=== PATIENT | female | born 1975 | race American Indian/Alaskan Native ===

== ENCOUNTER 2017-07-17 16:31 | Emergency (ER) | payer OTHER ==
[2017-07-17] MEDS ORDERED: TYLENOL PO ONE (17:41)
[2017-07-17] MEDS ORDERED: NACL 0.9% 1000 ML 1,000 ML IV ONE (18:13)
[2017-07-17] MEDS ORDERED: ZOFRAN IV ONE (18:13)
--- NOTE | 2017-07-17 18:17 | Emergency Department Report ---
HPI - General Chief Complaint: Nausea/Vomiting/Diarrhea Time Seen by Provider: 07/17/17 18:07 - HPI HPI: Room 1 The patient is a 42-year-old female presented with a chief complaint of nausea vomiting. Patient states her symptoms began yesterday with intractable nausea and vomiting. The patient's station and began to feel weak with body aches and subjective fever. Patient is to chills and occasional dysuria for 1 day. Patient denies hematuria. Patient states she has had some epigastric cramping earlier that has since resolved. The patient states her son had similar symptoms 3 days ago Location: The gastrointestinal system Duration: [See above] Quality: Nausea vomiting Severity: Moderate Modifying factors: [see above] Context: [see above] Mode of transportation: [not driving] ED Past Medical Hx - Past Medical History Hx Hypertension: Yes Hx GERD: Yes (currently not on meds) Hx Asthma: Yes Additional medical history: mvp, HLP - Surgical History Additional Surgical History: cervical ablation. cervical cerclage - Family History Family history: no significant - Social History Smoking Status: Never Smoker Substance Use Type: None - Medications Home Medications: Home Medications Medication Instructions Recorded Confirmed Last Taken Type Pantoprazole [Protonix] 20 mg PO BID #60 tablet. 06/01/14 07/28/14 Unknown Rx Azithromycin [Zithromax Z-HERRERA] 250 mg PO DAILY #1 pkg 07/28/14 Unknown Rx Lisinopril [Zestril] 20 mg PO QDAY 07/28/14 07/28/14 07/27/14 History Promethazine /Codeine 5 ml PO Q6H PRN #150 udc 07/28/14 Unknown Rx [Phenergan/Codeine 6.25-10 mg/5 ml] Simvastatin [Zocor] 20 mg PO QHS 07/28/14 07/28/14 07/27/14 History predniSONE [Deltasone] 50 mg PO QDAY #5 tab 07/28/14 Unknown Rx Fluticasone [Flonase] 1 spray NS QDAY #1 bottle 09/11/14 Unknown Rx Ibuprofen [Motrin] 800 mg PO TID PRN #21 tablet 09/11/14 Unknown Rx Promethazine [Phenergan] 25 mg PO Q6H PRN #10 tablet 09/11/14 Unknown Rx Cyclobenzaprine [Flexeril 10 MG 10 mg PO TID PRN #20 tablet 03/14/15 Unknown Rx TAB] oxyCODONE /ACETAMINOPHEN [Percocet 2 tab PO Q6HR PRN #30 tablet 03/14/15 Unknown Rx 5/325 mg] Lisinopril/Hydrochlorothiazide 1 tab PO QDAY #30 tab 08/09/15 Unknown Rx [Zestoretic 20-25 mg] metroNIDAZOLE [Flagyl] 500 mg PO Q12HR #14 tab 08/09/15 Unknown Rx traMADol [Ultram 50 MG tab] 50 mg PO Q6HR PRN #12 tablet 08/09/15 Unknown Rx Sulfamethoxazole/Trimethoprim 2 tab PO BID #21 tab 07/02/16 Unknown Rx [Bactrim 400-80 mg] Ondansetron [Zofran ODT TAB] 8 mg PO Q8HR #20 tab.rapdis 07/17/17 Unknown Rx Promethazine [Phenergan] 25 mg PA Q6HR PRN #5 supp.rect 07/17/17 Unknown Rx ED Review of Systems ROS: Stated complaint: FLU LIKE SYMPTOMS Other details as noted in HPI Constitutional: chills, fever (subjective) Gastrointestinal: abdominal pain, nausea, vomiting. denies: diarrhea Genitourinary: dysuria. denies: hematuria Musculoskeletal: myalgia Physical Exam - Physical Exam Vital Signs: Vital Signs 07/17/17 07/17/17 07/17/17 16:41 17:32 17:38 Temperature 100.3 F H 100.5 F H Pulse Rate 112 H 108 H Respiratory 20 18 Rate Blood Pressure 167/101 Blood Pressure 155/88 [Right] O2 Sat by Pulse 100 97 97 Oximetry Physical Exam: GENERAL: The patient is well-developed well-nourished female lying on stretcher not appearing to be in acute distress. [] HEENT: Normocephalic. Atraumatic. Extraocular motions are intact. Patient has moist mucous membranes. NECK: Supple. Trachea midline CHEST/LUNGS: Clear to auscultation. There is no respiratory distress noted. HEART/CARDIOVASCULAR: Regular. There is no tachycardia. There is no gallop rub or murmur. ABDOMEN: Abdomen is soft, nontender. Patient has normal bowel sounds. There is no abdominal distention. SKIN: There is no rash. There is no edema. There is no diaphoresis. NEURO: The patient is awake, alert, and oriented. The patient is cooperative. The patient has normal speech MUSCULOSKELETAL: There is no evidence of acute injury. ED Course Vital Signs 07/17/17 07/17/17 07/17/17 16:41 17:32 17:38 Temperature 100.3 F H 100.5 F H Pulse Rate 112 H 108 H Respiratory 20 18 Rate Blood Pressure 167/101 Blood Pressure 155/88 [Right] O2 Sat by Pulse 100 97 97 Oximetry - Reevaluation(s) Reevaluation #1: 07/17/17 20:24 pt tolerating po ED Medical Decision Making - Lab Data Result diagrams: 07/17/17 18:18 07/17/17 18:18 - Differential Diagnosis gastritis, gastroenteritis, UTI, pyelonephritis Critical care attestation.: If time is entered above; I have spent that time in minutes in the direct care of this critically ill patient, excluding procedure time. ED Disposition Clinical Impression: Gastritis, Nausea & vomiting Disposition: DC-01 TO HOME OR SELFCARE Is pt being admited?: No Does the pt Need Aspirin: No Condition: Stable Instructions: Gastroenteritis (ED), Acute Nausea and Vomiting (ED) Additional Instructions: Return to the emergency department immediately should you develop worsening symptoms, fever, inability to tolerate food or liquid or any other concerns. Prescriptions: Ondansetron [Zofran ODT TAB] 8 mg PO Q8HR #20 tab.rapdis Promethazine [Phenergan] 25 mg PA Q6HR PRN #5 supp.rect PRN Reason: Vomiting Referrals: KENJI MYRICK MD [Primary Care Provider] - 3-5 Days Time of Disposition: 20:25
[2017-07-17 18:37] LABS: Basophils % (Auto) 0.3 % (0.0-1.8); Eosinophils % (Auto) 0.3 % (0.0-4.3); Hematocrit 39.2 % (30.3-42.9); Hemoglobin 13.3 gm/dl (10.1-14.3); Mean Corpuscular HGB Conc 34 % (30-34); Mean Corpuscular Hemoglobin 28 pg (28-32); Mean Corpuscular Volume 83 fl (79-97); Platelet Count 238 K/mm3 (140-440); Red Blood Count 4.74 M/mm3 (3.65-5.03); Red Cell Distribution Width 14.1 % (13.2-15.2); White Blood Count 6.9 K/mm3 (4.5-11.0)
[2017-07-17 18:53] VITALS: BP 146/89
[2017-07-17 18:53] LABS: Alanine Aminotransferase 13 units/L (7-56); Albumin 4.1 g/dL (3.9-5); Albumin/Globulin Ratio 1.7 %; Alkaline Phosphatase 68 units/L (35-129); Anion Gap 16 mmol/L; BUN/Creatinine Ratio 15; Blood Urea Nitrogen 9 mg/dL (7-17); Calcium 8.4 mg/dL (8.4-10.2); Carbon Dioxide 25 mmol/L (22-30); Chloride 97.4 mmol/L (98-107); Glucose 93 mg/dL (65-100); Lipase 20 units/L (13-60); Potassium 3.7 mmol/L (3.6-5.0); Sodium 135 mmol/L (137-145); Total Protein 6.5 g/dL (6.3-8.2)
[2017-07-17 18:53] LABS: Bacteria,Urine 1+ /HPF (Negative); Bilirubin,Urine NEG (Negative); Blood,Urine SM (Negative); Ketones,Urine NEG (Negative); Leukocyte Esterase,Urine SM (Negative); Mucus,Urine FEW /HPF; Nitrite,Urine NEG (Negative)
== END 2017-07-17 21:15 | disposition home or self-care (01) ==
LOC: ED 16:31
DX: K29.70 Gastritis, unspecified, without bleeding (principal); R30.0 Dysuria; M79.1 Myalgia; I10 Essential (primary) hypertension; K21.9 Gastro-esophageal reflux disease without esophagitis
CPT/HCPCS: 36415; 80053; 81001; 81025; 83690; 85025; 96361; 96374; 99283; J2405; J7030

== ENCOUNTER 2017-09-01 02:46 | Emergency (ER) | payer SELFPAY ==
--- NOTE | 2017-09-01 03:39 | Emergency Department Report ---
HPI - General Chief Complaint: Dental/Oral Time Seen by Provider: 09/01/17 03:25 - HPI HPI: Patient reports toothache that started left upper tooth 2 hours ago. Denies any sore throat or difficulty swallowing. Denies any drooling. Denies any headache. Blood pressure is 176/113 and patient says she took her blood pressure 2 days ago and was 130/82. Was diagnosed precipitously with high blood pressure and was on medication but was taken off medication. No over-the- counter medication taken. Pain is 10 out of 10 and a can. Patient has a history of asthma, hypertension and acid reflux. Also has a history of mitral valve prolapse. ED Past Medical Hx - Past Medical History Previous Medical History?: Yes Hx Hypertension: Yes Hx GERD: Yes (currently not on meds) Hx Asthma: Yes Additional medical history: mvp, HLP - Surgical History Past Surgical History?: Yes Additional Surgical History: cervical ablation. cervical cerclage - Family History Family history: hypertension - Social History Smoking Status: Never Smoker Substance Use Type: None - Medications Home Medications: Home Medications Medication Instructions Recorded Confirmed Last Taken Type Pantoprazole [Protonix] 20 mg PO BID #60 tablet. 06/01/14 07/28/14 Unknown Rx Azithromycin [Zithromax Z-HERRERA] 250 mg PO DAILY #1 pkg 07/28/14 Unknown Rx Lisinopril [Zestril] 20 mg PO QDAY 07/28/14 07/28/14 07/27/14 History Promethazine /Codeine 5 ml PO Q6H PRN #150 udc 07/28/14 Unknown Rx [Phenergan/Codeine 6.25-10 mg/5 ml] Simvastatin [Zocor] 20 mg PO QHS 07/28/14 07/28/14 07/27/14 History predniSONE [Deltasone] 50 mg PO QDAY #5 tab 07/28/14 Unknown Rx Fluticasone [Flonase] 1 spray NS QDAY #1 bottle 09/11/14 Unknown Rx Ibuprofen [Motrin] 800 mg PO TID PRN #21 tablet 09/11/14 Unknown Rx Promethazine [Phenergan] 25 mg PO Q6H PRN #10 tablet 09/11/14 Unknown Rx Cyclobenzaprine [Flexeril 10 MG 10 mg PO TID PRN #20 tablet 03/14/15 Unknown Rx TAB] oxyCODONE /ACETAMINOPHEN [Percocet 2 tab PO Q6HR PRN #30 tablet 03/14/15 Unknown Rx 5/325 mg] Lisinopril/Hydrochlorothiazide 1 tab PO QDAY #30 tab 08/09/15 Unknown Rx [Zestoretic 20-25 mg] metroNIDAZOLE [Flagyl] 500 mg PO Q12HR #14 tab 08/09/15 Unknown Rx traMADol [Ultram 50 MG tab] 50 mg PO Q6HR PRN #12 tablet 08/09/15 Unknown Rx Sulfamethoxazole/Trimethoprim 2 tab PO BID #21 tab 07/02/16 Unknown Rx [Bactrim 400-80 mg] Ondansetron [Zofran ODT TAB] 8 mg PO Q8HR #20 tab.rapdis 07/17/17 Unknown Rx Promethazine [Phenergan] 25 mg GA Q6HR PRN #5 supp.rect 07/17/17 Unknown Rx Acetaminophen/Codeine [Tylenol 1 tab PO Q6H PRN #12 tab 09/01/17 Unknown Rx /Codeine # 3 tab] Clindamycin [Clindamycin CAP] 300 mg PO Q8H 10 Days #30 cap 09/01/17 Unknown Rx Ibuprofen [Motrin] 600 mg PO Q8H PRN #15 tablet 09/01/17 Unknown Rx ED Review of Systems ROS: Stated complaint: TOOTHACHE Other details as noted in HPI Comment: All other systems reviewed and negative Constitutional: no symptoms reported Eyes: denies: eye pain ENT: dental pain. denies: ear pain, throat pain, epistaxis, congestion Respiratory: no symptoms reported Cardiovascular: denies: chest pain, palpitations, dyspnea on exertion, edema, syncope Gastrointestinal: denies: abdominal pain, nausea, vomiting Musculoskeletal: denies: back pain, arthralgia, myalgia Skin: denies: rash Neurological: denies: headache Physical Exam - Physical Exam Vital Signs: Vital Signs 09/01/17 02:55 Temperature 98.5 F Pulse Rate 94 H Respiratory 20 Rate Blood Pressure 176/113 O2 Sat by Pulse 96 Oximetry Vital Signs 09/01/17 09/01/17 02:55 04:17 Temperature 98.5 F Pulse Rate 94 H Respiratory 20 Rate Blood Pressure 176/113 Blood Pressure 140/92 [Left] O2 Sat by Pulse 96 Oximetry General: This is a 42-year-old female well-nourished well-developed in no acute distress. Physical Exam: Head: Normocephalic atraumatic Ears:BIateral TM pearly mukherjee. Vick EAC with normal exam. No mastoid bone tenderness. Mouth: Moist, no pharyngeal erythema or exudate . No tonsillar erythema or exudate. UVULA midline and oral airways patent. No peritonsillar abscess. Positive dental caries. No dental abscess. Tender to palpation around tooth # 15 with partial filling. No facial swelling Neck: Nontender to palpate, supple, normal range of motion. No adenopathy. No c- spine tenderness. Nose: Bilateral nasal mucosa normal mucosa. Maxillary and frontal sinuses non- tender to palpate. Eyes: Bilateral Sclerae and conjunctiva without injection. Bilateral pupils equal and reactive to light. Bilateral lids are normal. Normal accommodation.BEOMI Lungs: Clear to auscultate bilaterally, no rhonchi wheezes or rales. Normal work of breathing and no chest wall tenderness CV: S1, S2. Regular rate and rhythm negative murmur. Capillary refill is less than 3 seconds. Blood pressure elevated and asymptomatic Skin: Clean dry and intact, no rashes or lesions Psych: Normal mood and behavior ED Course Vital Signs 09/01/17 02:55 Temperature 98.5 F Pulse Rate 94 H Respiratory 20 Rate Blood Pressure 176/113 O2 Sat by Pulse 96 Oximetry Vital Signs 09/01/17 09/01/17 02:55 04:17 Temperature 98.5 F Pulse Rate 94 H Respiratory 20 Rate Blood Pressure 176/113 Blood Pressure 140/92 [Left] O2 Sat by Pulse 96 Oximetry - Reevaluation(s) Reevaluation #1: 09/01/17 04:13 She given [place] 5/325 2 tablets in the emergency room. Blood pressure is 140/ 92 and she said pain is better. ED Medical Decision Making - Medical Decision Making ED course: Patient here reports toothache to left upper tooth. She does have access to a dentist and primary care. Patient also with elevated blood pressure without any symptoms and stated that she took her blood pressure 2 days ago and it was normal. She does have a history of high blood pressure but does not take medication. I discussed the patient that she will need to monitor her blood pressure at home and keep a log daily and call her primary care physician to schedule appointment follow-up blood pressure. Discussed with her that she has filling that appears to be loose to her left molar , upper. I discussed her current pain medication and antibiotic but she needs to follow-up with her dentist. Patient was given [place] 5/325 mg 2 tablets emergency room relief of pain and her blood pressure is 140/92 status post pain control. Patient discharged home in stable condition with prescription for Tylenol No. 3, Motrin and clindamycin. Critical care attestation.: If time is entered above; I have spent that time in minutes in the direct care of this critically ill patient, excluding procedure time. ED Disposition Clinical Impression: Tooth ache, Dental caries, Elevated blood pressure reading with diagnosis of hypertension Disposition: TO HOME OR SELFCARE Is pt being admited?: No Does the pt Need Aspirin: No Condition: Stable Instructions: Hypertension (ED), Toothache (ED), Dental Caries (ED) Additional Instructions: Please keep a log of his blood pressure and call your primary care physician to schedule an appointment for follow-up visit elevated blood pressure Please not drive or operate heavy machinery while taking Tylenol No. 3 as this medication causes drowsiness Increase fluid intake Please call your dentist as scheduled appointment later this morning for follow- up visit 3-5 days Take antibiotic as prescribed Prescriptions: Acetaminophen/Codeine [Tylenol /Codeine # 3 tab] 1 tab PO Q6H PRN #12 tab PRN Reason: Pain, Moderate (4-6) Clindamycin [Clindamycin CAP] 300 mg PO Q8H 10 Days #30 cap Ibuprofen [Motrin] 600 mg PO Q8H PRN #15 tablet PRN Reason: Pain Referrals: follow-up with your, primary care physician [Other] - 2-3 Days follow-up with your, dentist [Other] - 3-5 Days Forms: Work/School Release Form(ED)
[2017-09-01] MEDS ORDERED: NORCO 5/325 PO ONE (03:41)
[2017-09-01 04:18] VITALS: BP 140/92
== END 2017-09-01 04:30 | disposition home or self-care (01) ==
LOC: ED 02:46
DX: K02.9 Dental caries, unspecified (principal); I10 Essential (primary) hypertension; J45.909 Unspecified asthma, uncomplicated; K21.9 Gastro-esophageal reflux disease without esophagitis; E78.5 Hyperlipidemia, unspecified
CPT/HCPCS: 99282

== ENCOUNTER 2018-02-03 17:09 | Emergency (ER) | payer SELFPAY ==
[2018-02-03 17:17] VITALS: BP 159/88
--- NOTE | 2018-02-03 19:38 | Emergency Department Report ---
Chief Complaint: Pain General Stated Complaint: PAIN ALL OVER BODY Time Seen by Provider: 02/03/18 19:29 - HPI History of Present Illness: 42-year-old -[place] female comes in for generalized joint aching. Patient has no other complaints that started on Friday she reports that she took an ibuprofen the other day but has not taken any meds today. Patient denies any fever chills no vomiting no recent falls. Medical history of GERD asthma and mitral valve prolapse. - Exam Vital Signs: Vital Signs 02/03/18 17:13 Temperature 98.8 F Pulse Rate 97 H Respiratory 16 Rate Blood Pressure 159/88 O2 Sat by Pulse 99 Oximetry Physical Exam: Is alert and oriented 3. Cardiovascular S1 and S2 regular rate and rhythm. Respiratory clear to auscultation bilateral. Musculoskeletal: Full range of motion no joint swelling or tenderness appreciated MSE screening note: Focused history and physical exam performed. Due to findings the following was ordered: Discussed patient to follow up with [facility] [place] [facility] [place]-07 MED SCREENING EXAM-LEFT Is pt being admited?: No Does the pt Need Aspirin: No Condition: Stable Referrals: PRIMARY CARE, [Primary Care Provider] - 3-5 Days [facility] [Provider Group] - 3-5 Days
== END 2018-02-03 19:49 | disposition left against medical advice (07) ==
LOC: ED 17:09
DX: M79.1 Myalgia (principal); Z53.21 Procedure and treatment not carried out due to patient leaving prior to being seen by health care provider

== ENCOUNTER 2018-05-05 11:54 | Emergency (ER) | payer SELFPAY ==
[2018-05-05 12:16] VITALS: BP 173/101
[2018-05-05] MEDS ORDERED: DUONEB *Not for PRN Use IH ONE (13:49)
[2018-05-05] MEDS ORDERED: DELTASONE PO ONE (13:49)
--- NOTE | 2018-05-05 13:58 | Emergency Department Report ---
Minor Respiratory - [facility] Chief Complaint: Upper Respiratory Infection Stated Complaint: FLU SYMPTOMS/BODY ACHES Time Seen by Provider: 05/05/18 13:42 Duration: 3 Days Pain Location: Chest Severity: mild Minor Respiratory: Yes Rhinorrhea, Yes Sore Throat, Yes Able to Tolerate Fluids , Yes Cough, Yes Sick Contacts (SON), No Ear Pain, No Hemoptysis, No Chest Pain , No Shortness of Breath, No Fever ED Review of Systems ROS: Stated complaint: FLU SYMPTOMS/BODY ACHES Other details as noted in HPI ED Past Medical Hx - Past Medical History Hx Hypertension: Yes ("treated on a as needed basis") Hx GERD: Yes (currently not on meds) Hx Asthma: Yes Additional medical history: mvp, HLP - Surgical History Additional Surgical History: cervical ablation. cervical cerclage - Family History Family history: no significant - Social History Smoking Status: Never Smoker Substance Use Type: None - Medications Home Medications: Home Medications Medication Instructions Recorded Confirmed Last Taken Type Albuterol Sulfate [Ventolin HFA] 2 puff IH Q4H PRN #1 hfa.aer.ad 05/05/18 Unknown Rx Amoxicillin 500 mg PO BID #20 capsule 05/05/18 Unknown Rx Benzonatate [Tessalon Perles] 100 mg PO Q8HR PRN #20 capsule 05/05/18 Unknown Rx Fluticasone [Flonase] 1 spray NS QDAY #1 bottle 05/05/18 Unknown Rx predniSONE [Deltasone] 50 mg PO QDAY #5 tab 05/05/18 Unknown Rx Minor Respiratory Exam - Exam General: Vital signs noted. No distress. Alert and acting appropriately. HEENT: Yes Pharyngeal Erythema, Yes Moist Mucous Membranes, Yes Frontal Tenderness, Yes Maxillary Tenderness, No Pharyngeal Exudates, No Rhinorrhea, No Conjuctival Injection Ear: Neither TM Bulge, Neither TM Erythema, Neither EAC Pain, Neither EAC Discharge Neck: Yes Supple, No Adenopathy Lungs: Yes Good Air Exchange, Yes Wheezes (B), Yes Cough, No Ronchi, No Stridor , No Labored Respirations, No Retractions, No Use of Accessory Muscles, No Other Abnormal Lung Sounds Heart: Yes Regular, No Murmur Abdomen: Yes Normal Bowel Sounds, No Tenderness, No Peritoneal Signs Skin: No Rash, No Edema Neurologic: Alert and oriented, no deficits. Musculoskeletal: Unremarkable. ED Course Vital Signs 05/05/18 12:13 Temperature 99.2 F Pulse Rate 97 H Respiratory 19 Rate Blood Pressure 173/101 O2 Sat by Pulse 99 Oximetry - Reevaluation(s) Reevaluation #1: 05/05/18 14:05 A/C ASTHMA URTI SAME SON NON TOXIC NON ILL NO FEVER AMBULATORY AND TAKING PO Reevaluation #2: 05/05/18 14:05 NEURO INTACT HAS HAD INC BP BEFORE BUT NEVER NEEDED MEDS NO HEADACHE. NO SWELLING. NO CP OR SOB X W WHEEZING. EDUCATED ON FOLLOW UP AND BP MONITORING. ED Medical Decision Making - Medical Decision Making VSS NAD IMPROVED W DUONEB SON W SAME - Differential Diagnosis ASTHMA AE V URTI V LRTI Critical care attestation.: If time is entered above; I have spent that time in minutes in the direct care of this critically ill patient, excluding procedure time. ED Disposition Clinical Impression: URTI (acute upper respiratory infection), Elevated blood pressure reading Asthma Qualifiers: Asthma severity: mild Asthma persistence: intermittent Asthma complication type : with acute exacerbation Qualified Code(s): J45.21 - Mild intermittent asthma with (acute) exacerbation Disposition: DC-01 TO HOME OR SELFCARE Is pt being admited?: No Does the pt Need Aspirin: No Condition: Stable Instructions: Asthma (ED), DASH Eating Plan (ED), Low Sodium Diet (ED), Hypertension (ED) Additional Instructions: REST HYDRATE MEDS ORDERED DIET TOLERATED ACTIVITY TOLERATED AVOID TRIGGERS FOLLOW UP PCP REFERRAL GIVEN HERE TODAY FOLLOW UP WITH PCP TO BE SURE YOUR BLOOD PRESSURE DECREASES Prescriptions: Albuterol Sulfate [Ventolin HFA] 2 puff IH Q4H PRN #1 hfa.aer.ad PRN Reason: Shortness Of Breath Amoxicillin 500 mg PO BID #20 capsule Benzonatate [Tessalon Perles] 100 mg PO Q8HR PRN #20 capsule PRN Reason: Cough Fluticasone [Flonase] 1 spray NS QDAY #1 bottle predniSONE [Deltasone] 50 mg PO QDAY #5 tab Referrals: PRIMARY MD DAVE [Primary Care Provider] - 3-5 Days JAYLAN KNOTT MD [Staff Physician] - 3-5 Days Time of Disposition: 13:58
[2018-05-05] MEDS ORDERED: MOTRIN PO ONE (14:02)
== END 2018-05-05 14:37 | disposition home or self-care (01) ==
LOC: ED 11:54
DX: J06.9 Acute upper respiratory infection, unspecified (principal); J45.909 Unspecified asthma, uncomplicated; I10 Essential (primary) hypertension; K21.9 Gastro-esophageal reflux disease without esophagitis
CPT/HCPCS: 94640; 99282; J7512

== ENCOUNTER 2021-01-22 14:40 | Emergency (ER) | payer BC ==
[2021-01-22 14:55] VITALS: BP 143/84
--- NOTE | 2021-01-22 16:08 | Emergency Department Report ---
ED General Adult HPI - General Chief complaint: Extremity Problem,Nontraumatic Stated complaint: WEAKNESS IN RIGHT ARM, HEADACHE, FATIGUED Source: patient Mode of arrival: Ambulatory Limitations: No Limitations - History of Present Illness Initial comments: 45-year-old female with a past medical history of hypertension, mitral valve prolapse, bronchitis and borderline diabetes presents to the ER today with complaints of flulike symptoms. Patient states that for the past 1 week she has been having a dry cough with associated nasal congestion and green rhinorrhea, sinus pressure, headache, generalized weakness and intermittent body aches. She denies any obvious fever at home or chills. She denies any apparent ill contacts. She states that she did take her last modernal vaccine in the beginning of January. She reports no chest pain, shortness of breath, wheezing, abdominal pain, UTI symptoms or any associated symptoms at this time. Also complains of pain that she has been having to her right elbow for the past 2 months. She states that the pain radiates down to her wrist and hand. And she states that it is worse when she lifts or moves the elbow. She states that sometimes she feels some weakness from her elbow down to her wrist and hands. She does admit that she does a lot of repetitive arm use and lifting at work. She states that she has not seen transportation specialist or her primary care doctor for this pain. MD Complaint: URI symptoms, cough, generalized weakness, body aches -: week(s) (1) - Related Data Previous Rx's Medication Instructions Recorded Last Taken Type Albuterol Sulfate [Ventolin HFA] 2 puff IH Q4H PRN #1 hfa.aer.ad 05/05/18 Unknown Rx Fluticasone [Flonase] 1 spray NS QDAY #1 bottle 05/05/18 Unknown Rx predniSONE [Deltasone] 50 mg PO QDAY #5 tab 05/05/18 Unknown Rx Albuterol Mdi (or & Nicu Only) 2 puff IH QID PRN #1 inhalation 06/09/18 Unknown Rx [ProAir HFA Inhaler] HYDROcodone/APAP 5-325 [[place] 1 each PO Q4HR PRN #12 tablet 06/09/18 Unknown Rx 5/325] Ondansetron [Zofran Odt] 4 mg PO Q8HR PRN #10 tab.rapdis 06/09/18 Unknown Rx predniSONE [Deltasone] 20 mg PO QDAY #5 tab 06/09/18 Unknown Rx Albuterol Mdi (or & Nicu Only) 2 puff IH QID PRN #1 inhalation 06/26/18 Unknown Rx [ProAir HFA Inhaler] predniSONE [Deltasone] 20 mg PO QDAY #5 tab 06/26/18 Unknown Rx Amoxicillin [Trimox CAP] 500 mg PO Q8H #30 capsule 01/22/21 Unknown Rx Ibuprofen [Motrin] 800 mg PO Q8HR PRN #30 tablet 01/22/21 Unknown Rx Allergies Allergy/AdvReac Type Severity Reaction Status Date / Time No Known Allergies Allergy Verified 06/26/18 13:54 ED Review of Systems ROS: Stated complaint: WEAKNESS IN RIGHT ARM, HEADACHE, FATIGUED Other details as noted in HPI Comment: All other systems reviewed and negative Constitutional: denies: chills, fever Eyes: denies: eye pain, eye discharge, vision change ENT: congestion, other (Rhinorrhea). denies: ear pain, throat pain, dental pain, hearing loss, epistaxis Respiratory: cough. denies: shortness of breath, SOB with exertion, SOB at rest, wheezing Cardiovascular: denies: chest pain, palpitations, dyspnea on exertion, orthopnea, edema, syncope, paroxysmal nocturnal dyspnea Gastrointestinal: denies: abdominal pain, nausea, vomiting, diarrhea, constipation, hematemesis, hematochezia Musculoskeletal: arthralgia Neurological: denies: headache, weakness, numbness, paresthesias, confusion, abnormal gait, vertigo Psychiatric: denies: anxiety, depression, auditory hallucinations, visual hallucinations, homicidal thoughts, suicidal thoughts Hematological/Lymphatic: denies: easy bleeding, easy bruising, swollen glands ED Past Medical Hx - Past Medical History Previous Medical History?: Yes Hx Hypertension: Yes ("treated on a as needed basis") Hx GERD: Yes Hx Asthma: Yes Additional medical history: mvp, HLP - Surgical History Additional Surgical History: cervical ablation. cervical cerclage - Social History Smoking Status: Current Every Day Smoker Substance Use Type: None - Medications Home Medications: Home Medications Medication Instructions Recorded Confirmed Last Taken Type Albuterol Sulfate [Ventolin HFA] 2 puff IH Q4H PRN #1 hfa.aer.ad 05/05/18 Unknown Rx Fluticasone [Flonase] 1 spray NS QDAY #1 bottle 05/05/18 Unknown Rx predniSONE [Deltasone] 50 mg PO QDAY #5 tab 05/05/18 Unknown Rx Albuterol Mdi (or & Nicu Only) 2 puff IH QID PRN #1 inhalation 06/09/18 Unknown Rx [ProAir HFA Inhaler] HYDROcodone/APAP 5-325 [[place] 1 each PO Q4HR PRN #12 tablet 06/09/18 Unknown Rx 5/325] Ondansetron [Zofran Odt] 4 mg PO Q8HR PRN #10 tab.rapdis 06/09/18 Unknown Rx predniSONE [Deltasone] 20 mg PO QDAY #5 tab 06/09/18 Unknown Rx Albuterol Mdi (or & Nicu Only) 2 puff IH QID PRN #1 inhalation 06/26/18 Unknown Rx [ProAir HFA Inhaler] predniSONE [Deltasone] 20 mg PO QDAY #5 tab 06/26/18 Unknown Rx Amoxicillin [Trimox CAP] 500 mg PO Q8H #30 capsule 01/22/21 Unknown Rx Ibuprofen [Motrin] 800 mg PO Q8HR PRN #30 tablet 01/22/21 Unknown Rx ED Physical Exam - General Limitations: No Limitations General appearance: alert, in no apparent distress - Head Head exam: Present: atraumatic, normocephalic, normal inspection - Eye Eye exam: Present: normal appearance, PERRL, EOMI Pupils: Present: normal accommodation - ENT ENT exam: Present: normal exam, mucous membranes moist, other (Maxillary sinus tenderness bilaterally) - Expanded ENT Exam Expanded TM/Canal exam: Effusion: Right TM, Left TM Mouth exam: Present: normal external inspection Throat exam: Positive: normal inspection - Neck Neck exam: Present: normal inspection, full ROM. Absent: meningismus - Respiratory Respiratory exam: Present: normal lung sounds bilaterally. Absent: respiratory distress, wheezes, rales, rhonchi - Cardiovascular Cardiovascular Exam: Present: regular rate, normal rhythm, normal heart sounds - Expanded Upper Extremity Exam Right Elbow exam: Present: full ROM (But she does have some mild pain range of motion of the elbow.), tenderness (Tenderness to palpation medial and anterior aspect of the right elbow). Absent: swelling, abrasion, laceration, deformity, crepidus, dislocation, erythema, effusion, pain w/ pronation/supination, tenderness over radial head Neurosensory exam: Present: radial nerve intact, ulnar nerve intact, median nerve intact Vascular: Present: normal capillary refill. Absent: vascular compromise - Neurological Exam Neurological exam: Present: alert, oriented X3, CN II-XII intact, normal gait - Psychiatric Psychiatric exam: Present: normal affect, normal mood - Skin Skin exam: Present: intact ED Course Vital Signs 01/22/21 14:54 Temperature 98.4 F Pulse Rate 89 Respiratory 13 Rate Blood Pressure 143/84 O2 Sat by Pulse 99 Oximetry ED Medical Decision Making - Medical Decision Making The patient is resting comfortably, is alert and in no distress. The patient has normal mental status and is neurologically intact with a normal gait in the ER. The patient appears well and there is no significant dehydration. There is no respiratory distress and no signs of systemic toxicity. The history, exam, diagnostic testing and current condition do not demonstrate an infectious process such as meningitis, severe pneumonia, retropharyngeal abscess, metabolic abnormality, sepsis or other serious bacterial infection requiring further testing, treatment, consultation or admission at this time. Her vital signs have been stable. Suspect that her left elbow pain is related to tendinitis due to repetitive arm use. Also suspect that the symptoms are related to sinus infection/viral syndrome. Discussed suspected diagnosis and treatment plan with patient. The patient will pursue further outpatient evaluation with the primary care physician or other designated or consulting physician as indicated on the discharge instructions. Critical care attestation.: If time is entered above; I have spent that time in minutes in the direct care of this critically ill patient, excluding procedure time. ED Disposition Clinical Impression: Right elbow pain, Bacterial sinusitis Disposition: DC-01 TO HOME OR SELFCARE Is pt being admited?: No Does the pt Need Aspirin: No Condition: Stable Instructions: Sinusitis, Adult, [id number], Joint Pain, [id number] Additional Instructions: I recommend that you take the antibiotics as prescribed. Continue using your Flonase that you have at home. Take the ibuprofen as prescribed to help with pain. Recommend that you rest and drink lots of fluids. Follow-up with the transportation specialist listed on your discharge instructions for further ze luation of your right elbow. Also follow-up with your primary care doctor. Return to the ER if your symptoms changes or worsens in any way. Prescriptions: Ibuprofen [Motrin] 800 mg PO Q8HR PRN #30 tablet PRN Reason: pain Amoxicillin [Trimox CAP] 500 mg PO Q8H #30 capsule Referrals: MAU SAEED MD [Staff Physician] - 3-5 Days (behavior support specialist) Forms: Work/School Release Form(ED) Time of Disposition: 16:16
== END 2021-01-22 16:30 | disposition home or self-care (01) ==
LOC: ED 14:40
DX: J32.8 Other chronic sinusitis (principal); B96.89 Other specified bacterial agents as the cause of diseases classified elsewhere; M25.521 Pain in right elbow; I10 Essential (primary) hypertension; K21.9 Gastro-esophageal reflux disease without esophagitis; J45.909 Unspecified asthma, uncomplicated; F17.200 Nicotine dependence, unspecified, uncomplicated; Z98.890 Other specified postprocedural states; Z79.1 Long term (current) use of non-steroidal anti-inflammatories (NSAID); Z79.2 Long term (current) use of antibiotics; Z79.899 Other long term (current) drug therapy
CPT/HCPCS: 99281